=== PATIENT | female | born 1930 | race Caucasian/White ===

== ENCOUNTER 2016-09-30 13:00 | Outpatient (RCR) | payer MEDICARE, MEDICAID ==
[~2016-09-30 13:00] MED LIST: BENICAR40 MG ORAL; CARAFATE1 G1 ORAL; DIPHENHYDRAMINE30 GM TOPIC; HYDROCODON-ACE1 EA15 ORAL; HYDROCORTISONE28 G2 TP; KEFLEX500 MG ORAL; LIPITOR80 MG ORAL; MELOXICAM7.5 MG PO; METFORMIN HCL500 M1 ORAL; PANTOPRAZOLE SO40 MG ORAL; TRAMADOL HCL50 MG ORAL
== END 2016-10-04 | disposition home or self-care (01) ==
LOC: PTY 13:00
DX: M75.51 Bursitis of right shoulder (principal); M47.817 Spondylosis without myelopathy or radiculopathy, lumbosacral region
CPT/HCPCS: 97110; 97162; G8978; G8979

== ENCOUNTER 2016-10-07 13:00 | Outpatient (RCR) | payer MEDICARE, MEDICAID | END 2016-11-01 | disposition home or self-care (01) | LOC: PTY 13:00 | DX: M75.51 Bursitis of right shoulder (principal); M47.817 Spondylosis without myelopathy or radiculopathy, lumbosacral region | CPT/HCPCS: 97110; 97140; G0283 ==

== ENCOUNTER 2016-11-02 12:30 | Outpatient (RCR) | payer MEDICARE, MEDICAID ==
[2016-11-20] MEDS ORDERED: PERMETHRIN60 GM TOPIC (18:10)
== END 2016-12-02 | disposition home or self-care (01) ==
LOC: PTY 12:30
DX: M75.51 Bursitis of right shoulder (principal); M47.817 Spondylosis without myelopathy or radiculopathy, lumbosacral region; Z91.81 History of falling; M54.5 Low back pain; E11.9 Type 2 diabetes mellitus without complications; M19.90 Unspecified osteoarthritis, unspecified site
CPT/HCPCS: 97110; 97140; G8979; G8980

== ENCOUNTER 2016-11-20 17:37 | Emergency (ER) | payer MEDICARE, MEDICAID ==
[~2016-11-20] VITALS: Ht 152.4 cm; Wt 56.7 kg
[2016-11-20 18:02] VITALS: BP 171/78
[2016-11-20] MEDS ORDERED: PERMETHRIN60 GM TOPIC (18:10)
[2016-11-20 18:26] VITALS: BP 171/78
--- NOTE | 2016-11-23 14:22 | Emergency Room Report ---
History of Present Illness General Chief Complaint: Skin Rash/Abscess Source: Family Member Present Illness HPI Patient presents with family for complaints of rash to the upper chest and back area Patient herself defers most the question to her daughter Daughter denies any acute change in medications denies any fevers or chills Denies any vomiting or diarrhea The daughter herself had shingles recently Patient has also had a bugs in the past Otherwise no reports of any recent travel Allergies: Coded Allergies: No Known Allergies (Verified , N/A, 10/16/06) Patient History Past Medical History: see triage record Pertinent Family History: none Now: No Reviewed Nursing Documentation: PMH: Agreed, PSxH: Agreed Nursing Documentation-PMH Past Medical History: No History, Except For Hx Cardiac Problems: Yes Hx Hypertension: Yes Hx Diabetes: Yes Hx Cancer: No Hx Gastrointestinal Problems: Yes - GERD Hx Neurological Problems: No Review of Systems All Other Systems: negative except mentioned in HPI Physical Exam Vital Signs Date Time Temp Pulse Resp B/P Pulse Ox O2 Delivery O2 Flow Rate FiO2 11/20/16 17:52 97.5 59 14 171/78 99 Room Air Sp02 EP Interpretation: reviewed, normal General Appearance: well appearing, no apparent distress Head: normocephalic, atraumatic Eyes: bilateral eye EOMI, bilateral eye PERRL ENT: hearing grossly normal, normal pharynx, TMs + canals normal, uvula midline Neck: full range of motion, supple, no meningismus, no bony tend Respiratory: lungs clear, normal breath sounds, no rhonchi, no respiratory distress, no retraction, no accessory muscle use Cardiovascular #1: normal peripheral pulses, regular rate, rhythm, no edema, no gallop, no JVD, no murmur Gastrointestinal: normal bowel sounds, non tender, soft, no mass, no organomegaly, non-distended, no guarding, no hernia, no pulsatile mass, no rebound Genitourinary: no CVA tenderness Musculoskeletal: normal inspection Neurologic: oriented x3, responsive, reagent tender helper III-XII nml as tested, motor strength/ tone normal, sensory intact Psychiatric: mood/affect normal Skin: other - Several areas of scab formation, midsternal chest area appears to be affected there is also area on the upper back trapezius region, there is no obvious dermatomal pattern, there is no blistering formation, there is no fluctuance Lymphatic: normal inspection, no adenopathy Medical Decision Making Diagnostic Impression: Primary Impression: Rash and other nonspecific skin eruption ER Course Multiple differentials are considered including but not limited to Shingles, medication reaction, heat rash, insect bites Patient shows fairly nonspecific findings There are several areas that have a scab formation with a linear formation Is consider infectious pathology Patient was provided with initial medication and will have close outpatient followup Last Vital Signs Date Time Temp Pulse Resp B/P Pulse Ox O2 Delivery O2 Flow Rate FiO2 11/20/16 18:26 97.5 14 171/78 99 Room Air 11/20/16 17:52 59 Status: unchanged Disposition: HOME, SELF-CARE Condition: Stable Scripts Permethrin* (ELIMITE*) 60 Gm Cream..g. 1 APPLIC TOPIC ONCE, #60 GM 0 Refills Apply cream from head to toe; leave on for 8-14 hours before washing off with water; may reapply in 1 week if live mites appear. Prov: SHAISTA WINTERS D.O. 11/20/16 Referrals: NOT CHOSEN IPA/MD,REFERRING (PCP) Patient Instructions: Rash Additional Instructions: Patient is provided with the discharge instructions notified to follow up with primary doctor in the next 2-3 days otherwise return to the er with any worsening symptoms. Please note that this report is being documented using Fieldbook technology. This can lead to erroneous entry secondary to incorrect interpretation by the dictating instrument. SHAISTA WINTERS D.O. Nov 23, 2016 14:22
== END 2016-11-20 18:26 | disposition home or self-care (01) ==
LOC: EMR 18:23
DX: R21 Rash and other nonspecific skin eruption (principal); I10 Essential (primary) hypertension; E11.9 Type 2 diabetes mellitus without complications; K21.9 Gastro-esophageal reflux disease without esophagitis
CPT/HCPCS: 99283

== ENCOUNTER 2017-05-16 01:31 | Emergency (ER) | payer MEDICARE, MEDICAID ==
[~2017-05-16] VITALS: Ht 162.6 cm; Wt 56.7 kg
[~2017-05-16 01:31] MED LIST changes: +PERMETHRIN60 GM TOPIC
[2017-05-16 01:40] VITALS: BP 161/69
[2017-05-16] MEDS ORDERED: Norco 5mg/325mg tab ORAL ONE (01:45)
[2017-05-16] MEDS ORDERED: GABAPENTIN300 MG ORAL (03:37)
--- NOTE | 2017-05-16 03:37 | Emergency Room Report ---
History of Present Illness General Chief Complaint: Lower Extremity Injury Source: Patient, Medical Record Present Illness HPI Is an 87-year-old female with multiple medical problem. She called him a prescription for bilateral load from the pain. This is a chronic problem for her. EMS said that she fell but patient denies any trauma. Said her medicine is not helping no fever chills been no nausea vomiting. Denies any other complaint. Allergies: Coded Allergies: No Known Allergies (Verified , N/A, 10/16/06) Patient History Past Medical History: see triage record, old chart reviewed Past Surgical History: other Pertinent Family History: none Social History: Denies: smoking Last Menstrual Period: NA Now: No Immunizations: other Reviewed Nursing Documentation: PMH: Agreed, PSxH: Agreed Nursing Documentation-PMH Hx Cardiac Problems: Yes Hx Hypertension: Yes Hx Diabetes: Yes Hx Cancer: No Hx Gastrointestinal Problems: Yes - GERD Hx Neurological Problems: No Review of Systems Eye: Denies: eye pain, blurred vision ENT: Denies: ear pain, nose congestion, throat swelling Respiratory: Denies: cough, shortness of breath Cardiovascular: Denies: chest pain, palpitations Gastrointestinal: Denies: abdominal pain, diarrhea, nausea, vomiting Musculoskeletal: Denies: back pain, joint pain Skin: Denies: rash Neurological: Denies: headache, numbness Endocrine: Denies: increased thirst, increased urine Hematologic/Lymphatic: Denies: easy bruising All Other Systems: negative except mentioned in HPI Physical Exam Vital Signs Date Time Temp Pulse Resp B/P (MAP) Pulse Ox O2 Delivery O2 Flow Rate FiO2 05/16/17 01:28 97.9 54 18 148/65 98 Room Air vitals normal Sp02 EP Interpretation: reviewed, normal General Appearance: well appearing, no apparent distress, alert Head: normocephalic, atraumatic Eyes: bilateral eye PERRL, bilateral eye EOMI ENT: hearing grossly normal, normal pharynx Neck: full range of motion, supple, no meningismus Respiratory: chest non-tender, lungs clear, normal breath sounds Cardiovascular #1: regular rate, rhythm, no murmur Gastrointestinal: normal bowel sounds, non tender, no mass, no organomegaly, no bruit, non-distended Musculoskeletal: back normal, gait/station normal, normal range of motion, other - Both lower legs are wrapped. There is no deformity. There is some mild erythema laterally but no evidence of infection. No warmth. No edema. Pulses are normal. Neurologic: alert, oriented x3 Psychiatric: mood/affect normal Skin: warm/dry Medical Decision Making Diagnostic Impression: Primary Impression: Neuropathic pain, leg, bilateral ER Course She with bilateral lower extremity pain. She is more comfortable after treatment. No evidence of DVT, PE, CHF to name a few. No trauma. We'll discharge home. Last Vital Signs Date Time Temp Pulse Resp B/P (MAP) Pulse Ox O2 Delivery O2 Flow Rate FiO2 05/16/17 03:04 98.1 05/16/17 01:40 53 13 161/69 99 Room Air Status: improved Disposition: HOME, SELF-CARE Condition: Stable Scripts Gabapentin* (GABAPENTIN*) 300 Mg Capsule 300 MG ORAL BEDTIME, #20 CAP Prov: ALEJANDRO FLOOD M.D. 05/16/17 Referrals: NOT CHOSEN IPA/,REFERRING (PCP) Additional Instructions: Followup with your Dr. in 7 days. Return if symptom worsen. ALEJANDRO FLOOD M.D. May 16, 2017 03:37
[2017-05-16 03:50] VITALS: BP 167/65
[2017-05-16 05:42] VITALS: BP 159/60
[2017-05-16 07:00] VITALS: BP 143/61
[2017-05-16 08:30] VITALS: BP 163/57
[2017-05-16 09:40] VITALS: BP 143/61
== END 2017-05-16 09:40 | disposition home or self-care (01) ==
LOC: EDBD 01:31 → EMR 01:47
DX: M79.2 Neuralgia and neuritis, unspecified (principal); M79.605 Pain in left leg; M79.604 Pain in right leg; I10 Essential (primary) hypertension; E11.9 Type 2 diabetes mellitus without complications; K21.9 Gastro-esophageal reflux disease without esophagitis
CPT/HCPCS: 82962; 99283

== ENCOUNTER 2017-09-06 13:41 | Inpatient (IN) | payer MEDICARE, MEDICAID ==
[~2017-09-06] VITALS: Ht 162.6 cm; Wt 54.0 kg
[~2017-09-06 13:41] MED LIST changes: +GABAPENTIN300 MG ORAL
[2017-09-06] MEDS ORDERED: Solu-MEDROL 125mg Inj IVP ONE (14:15)
--- NOTE | 2017-09-06 14:17 | Emergency Room Report ---
History of Present Illness General Chief Complaint: Dyspnea/Respdistress Source: Patient, Family Member Present Illness HPI 87-year-old female with history of asthma, diabetes and hypertension p/w SOB for 3 days. Patient states SOB began gradually. Daughter states that she has heavy breathing and wheezing. SOB occurs both at rest and on exertion. + non productive cough. Denies chest pain. Daughter states that she has an albuterol inhaler, however asthma has not acted up in a long time, has not been using at home. Patient does not have nebulizer at home. No recent steroid use. Last hospitalization was more than 6 months ago Patient also has intermittent swelling of her legs, swelling of her legs slightly worse than normal, no history of heart failure Denies fever, chills. Denies sick contacts or recent travel. Allergies: Coded Allergies: No Known Allergies (Verified , N/A, 10/16/06) Patient History Past Medical History: see triage record Past Surgical History: none Pertinent Family History: none Reviewed Nursing Documentation: PMH: Agreed, PSxH: Agreed Nursing Documentation-PMH Past Medical History: No History, Except For Hx Cardiac Problems: Yes - Cardiomegaly Hx Hypertension: Yes Hx Diabetes: Yes Hx Cancer: No Hx Gastrointestinal Problems: Yes - GERD Hx Neurological Problems: No Review of Systems All Other Systems: negative except mentioned in HPI Physical Exam Vital Signs Date Time Temp Pulse Resp B/P (MAP) Pulse Ox O2 Delivery O2 Flow Rate FiO2 09/06/17 13:42 98.1 54 16 152/77 95 Room Air Sp02 EP Interpretation: reviewed, normal General Appearance: alert, GCS 15, non-toxic, moderate distress, thin Head: normocephalic, atraumatic Eyes: bilateral eye normal inspection, bilateral eye PERRL, bilateral eye EOMI ENT: normal ENT inspection, normal pharynx, normal voice, moist mucus membranes Neck: normal inspection, full range of motion, supple Respiratory: respiratory distress, wheezing, expiration Cardiovascular #1: regular rate, rhythm, normal capillary refill, edema Cardiovascular #2: 2+ radial (R), 2+ radial (L) Gastrointestinal: normal inspection, non tender, soft, non-distended, no guarding Musculoskeletal: normal inspection, back normal, normal range of motion, non- tender Neurologic: normal inspection, alert, oriented x3, responsive, motor strength/ tone normal, sensory intact, normal gait, speech normal Psychiatric: normal inspection, judgement/insight normal, memory normal Skin: normal inspection, normal color, no rash, warm/dry, well hydrated, normal turgor Procedures Critical Care Time Critical Care Time 40 minutes of CC time 87-year-old female, shortness of breath, asthma exacerbation VS: Tachypnea, tachycardic, hypoxic PLAN: IV access, labs, troponin, and meds, steroids, chest x-ray Anticipate admission to Tele vs. MIKE CC time also includes review of labs, review of EMR, discussion with family and paperwork from SNF, d/w hospitalist CC could include dosing of pressors, additional Abx CC time does not include procedures Medical Decision Making Diagnostic Impression: Primary Impression: Respiratory distress Additional Impressions: Asthma exacerbation Pneumonia UTI (urinary tract infection) ER Course 87-year-old female with history of asthma p/w SOB DDX: Asthma exacerbation, CHF, pneumonia, upper respiratory infection/viral syndrome PE is unlikely given other likely diagnoses which is more likely in this patients given clinical scenario and physical examination. urthermore, there is no history of DVT/PE. PERC negative. No risk factors such as prolonged immobilizations, recent surgeries, hypercoagulability. Plan: Combivent nebulizer treatment x 3, steroids, EKG, CXR If patient's condition minimally improves/worsens will require IV access and blood work. Possible IV medications such as magnesium sulfate, continuous albuterol, BIPAP. ER Course: Patient's respiratory status has been closely monitored in the ED. Patient has been treated with combivent x 3, steroids. Repeat lung auscultation reveals persistent wheezing. more nebs given, and has improvement, speaking in complete sentences R sided infiltrate - abx given also with UTI Disposition: Patient will be admitted to telemetry D/W hospitalist Dr Velez Please note that this Emergency Department Report was dictated using [employer] manager technology software, occasionally this can lead to erroneous entry secondary to interpretation by the dictation equipment. EKG Diagnostic Results EP Interpretation: Yes Rate: normal Rhythm: NSR ST Segments: LBBB no sgarbossa criteria fulfilled ASA given to patient: No Rhythm Strip EP Interpretation: Yes Rate: 70 Rhythm: NSR, no PVCs, no ectopy Chest X-ray * CXR: Ordered: Yes 1 view Indication: SOB EP interpretation: Yes Interpretation: suspicious R sided developing pneumonia Impression: R sided infiltrate Electronically signed by Angie Bennett MD Last Vital Signs Date Time Temp Pulse Resp B/P (MAP) Pulse Ox O2 Delivery O2 Flow Rate FiO2 09/06/17 13:42 98.1 54 16 152/77 95 Room Air Disposition: ADMITTED INPATIENT Condition: Critical Angie Bennett M.D. Sep 06, 2017 14:17
[2017-09-06] MEDS: Albuterol ud Inhalation HHN SCH ×4 (14:33→16:22)
[2017-09-06] MEDS: Ipratropium 0.02% Inh Soln 2.5ml UD HHN SCH ×3 (14:33→14:35)
[2017-09-06] MEDS ORDERED: Azithromycin 500 MG in D5W 275 ML IVPB ONE (15:15)
[2017-09-06] MEDS ORDERED: cefTRIAXone 1 GM in NS 55 ML IVPB ONE (15:15)
[2017-09-06] MEDS ORDERED: Azithromycin 500mg Inj IV ONE (15:19)
--- NOTE | 2017-09-06 15:39 | Diagnostic Imaging Report ---
Indication: Shortness of breath Technique: One view of the chest Comparison: 02/18/2011 Findings: Patient is slightly rotated to the left. The heart is enlarged. There is a small retrocardiac hiatal hernia. No definite acute infiltrates, effusions, or congestion Impression: Borderline cardiomegaly No definite acute process
[2017-09-06 15:45] LABS: BASOPHILS % (AUTO) 1.6 % (0.0-2.0); EOSINOPHILS % (AUTO) 2.7 % (0.0-3.0); HEMATOCRIT 39.6 % (37.0-47.0); HEMOGLOBIN 12.3 G/DL (12.0-16.0); LYMPHOCYTES % (AUTO) 18.7 % (20.0-45.0); MEAN CORPUSCULAR VOLUME 93 FL (80-99); MONOCYTES % (AUTO) 13.4 % (1.0-10.0); NEUTROPHILS % (AUTO) 63.7 % (45.0-75.0); PLATELET COUNT 204 K/UL (150-450); RED BLOOD COUNT 4.27 M/UL (4.20-5.40); RED CELL DISTRIBUTION WIDTH 11.7 % (11.6-14.8); WHITE BLOOD COUNT 6.8 K/UL (4.8-10.8)
[2017-09-06] MEDS ORDERED: LEVOTHYROXINE25 MCG ORAL (15:49)
[2017-09-06] MEDS ORDERED: LASIX40 MG ORAL (15:49)
[2017-09-06] MEDS ORDERED: BYSTOLIC10 MG ORAL (15:49)
[2017-09-06] MEDS ORDERED: PANTOPRAZOLE SO40 MG ORAL (15:49)
[2017-09-06] MEDS ORDERED: MELOXICAM7.5 MG PO (15:49)
[2017-09-06] MEDS ORDERED: EZETIMIBE10 MG PO (15:49)
[2017-09-06] MEDS ORDERED: ATORVASTATIN CA40 MG ORAL (15:49)
[2017-09-06 15:54] LABS: APPEARANCE,URINE CLEAR; BILIRUBIN, URINE NEGATIVE (NEGATIVE); COLOR,URINE PALE YELLOW; GLUCOSE, URINE (UA) NEGATIVE (NEGATIVE); KETONES,URINE NEGATIVE (NEGATIVE); LEUKOCYTE ESTERASE ,URINE 3+ (NEGATIVE); NITRITE,URINE NEGATIVE (NEGATIVE); PH,URINE 7 (4.5-8.0); PROTEIN,URINE NEGATIVE (NEGATIVE); UROBILINOGEN,URINE NORMAL MG/DL (0.0-1.0)
[2017-09-06 16:15] VITALS: BP 138/73
[2017-09-06 16:18] LABS: ANION GAP 7 mmol/L (5-15); BLOOD UREA NITROGEN 15 mg/dL (7-18); CALCIUM 7.9 MG/DL (8.5-10.1); CARBON DIOXIDE 32 MMOL/L (21-32); CHLORIDE 98 MMOL/L (98-107); CREATININE 0.5 MG/DL (0.55-1.30); POTASSIUM 3.6 MMOL/L (3.5-5.1); SODIUM 137 MMOL/L (136-145)
[2017-09-06 16:26] LABS: ALANINE AMINOTRANSFERASE 43 U/L (12-78); ALBUMIN 3.7 G/DL (3.4-5.0); ALBUMIN/GLOBULIN RATIO 0.9 (1.0-2.7); ALKALINE PHOSPHATASE 49 U/L (46-116); ASPARTATE AMINO TRANSFERASE 58 U/L (15-37); BILIRUBIN,TOTAL 0.4 MG/DL (0.2-1.0)
[2017-09-06 17:54] VITALS: BP 132/70
[2017-09-06 18:35] VITALS: BP 140/59
[2017-09-06 20:13] VITALS: BP 153/76
[2017-09-06] MEDS: Atorvastatin 80mg tab ORAL SCH (22:39)
[2017-09-06] MEDS: Solu-MEDROL 40mg Inj IVP SCH (22:40)
[2017-09-06] MEDS: Albuterol/Ipratropium 3ml neb HHN SCH (23:46)
[2017-09-07 00:24] VITALS: BP 144/79
[2017-09-07] MEDS: NovoLOG Insulin Flexpen SUBQ SCH ×5 (00:39→21:32)
[2017-09-07] MEDS: Albuterol/Ipratropium 3ml neb HHN SCH ×6 (03:00→23:31)
[2017-09-07 04:24] VITALS: BP 154/74
[2017-09-07] MEDS ORDERED: Levothyroxine 25mcg tab ORAL SCH (06:30)
[2017-09-07 06:48] LABS: HEMATOCRIT 33.1 % (37.0-47.0); HEMOGLOBIN 11.4 G/DL (12.0-16.0); MEAN CORPUSCULAR VOLUME 92 FL (80-99); PLATELET COUNT 209 K/UL (150-450); RED CELL DISTRIBUTION WIDTH 11.8 % (11.6-14.8); WHITE BLOOD COUNT 7.9 K/UL (4.8-10.8)
[2017-09-07 07:18] LABS: ALANINE AMINOTRANSFERASE 28 U/L (12-78); ALBUMIN/GLOBULIN RATIO 0.7 (1.0-2.7); ALKALINE PHOSPHATASE 43 U/L (46-116); ANION GAP 7 mmol/L (5-15); ASPARTATE AMINO TRANSFERASE 37 U/L (15-37); BILIRUBIN,TOTAL 0.3 MG/DL (0.2-1.0); BLOOD UREA NITROGEN 11 mg/dL (7-18); CALCIUM 7.8 MG/DL (8.5-10.1); CARBON DIOXIDE 28 MMOL/L (21-32); CHLORIDE 99 MMOL/L (98-107); CHOLESTEROL 103 MG/DL (< 200); CREATININE 0.5 MG/DL (0.55-1.30); HDL CHOLESTEROL 56 MG/DL (40-60); POTASSIUM 3.4 MMOL/L (3.5-5.1); SODIUM 134 MMOL/L (136-145); TRIGLYCERIDES 32 MG/DL (30-150)
[2017-09-07 08:00] VITALS: BP 147/90
[2017-09-07] MEDS: Solu-MEDROL 40mg Inj IVP SCH ×2 (08:22→21:30)
[2017-09-07] MEDS: Irbesartan 150mg tablet ORAL SCH (08:23)
[2017-09-07] MEDS: Azithromycin 250mg tab ORAL SCH (08:23)
[2017-09-07] MEDS ORDERED: Furosemide 40mg tab ORAL SCH (09:00)
[2017-09-07] MEDS ORDERED: metFORMIN 500mg tab ORAL SCH (09:00)
[2017-09-07 12:00] VITALS: BP 138/73
[2017-09-07] MEDS: cefTRIAXone 1 GM in D5W 55 ML IVPB SCH (14:57)
[2017-09-07 15:44] VITALS: BP 150/72
--- NOTE | 2017-09-07 16:41 | History & Physical ---
History and Physical History & Physicial dict asthma exac HTN DM hypothy GERRI COSME Sep 07, 2017 16:41
[2017-09-07] MEDS: 1/2NS w/KCl 20mEq 1000ml 1,000 ML IV SCH (18:35)
[2017-09-07 20:00] VITALS: BP 129/72
[2017-09-07] MEDS ORDERED: Zolpidem 5mg tab ORAL PRN (20:30)
[2017-09-07] MEDS: Atorvastatin 80mg tab ORAL SCH (21:30)
[2017-09-08] VITALS: BP 137/57
--- NOTE | 2017-09-08 00:15 | History and Physical Report ---
DATE OF ADMISSION: 09/06/2017 CHIEF COMPLAINT: Short of breath. HISTORY OF PRESENT ILLNESS: This is an 87-year-old woman who was admitted from home because of several days of increasing wheezing and shortness of breath. She has a history of asthma, which has been quite stable on inhaled bronchodilators. She has not had an exacerbation in many years. She has no high fever. She has no chest pain or cough and no sputum production. She has some ankle edema that is chronic and not worse than usual. PAST MEDICAL HISTORY: Include asthma, hypertension, hyperlipidemia, diabetes, chronic edema, and acid reflux, hypothyroidism, and osteoarthritis. MEDICATIONS: Include Lipitor, Zetia, Lasix, thyroxine, meloxicam, metformin, Bystolic, Benicar, and pantoprazole. REVIEW OF SYSTEMS: Otherwise unremarkable, but limited by language barrier. PHYSICAL EXAMINATION: GENERAL: The patient is alert and responsive, but is moaning that "I do not feel well." VITAL SIGNS: Blood pressure is 138 to 154/74. There is no fever. Respirations are 20. Saturation is normal on supplemental oxygen. Heart rate is 79. SKIN: Warm and dry. HEENT: She is overweight. Head is normocephalic. NECK: No jugular venous distention. CHEST: Mild expiratory wheezing. CARDIAC: Rhythm is regular. ABDOMEN: Soft and nontender. EXTREMITIES: No clubbing or cyanosis. Trace edema. LABORATORY AND DIAGNOSTIC DATA: X-ray is clear. Lungs are clear with cardiomegaly. Laboratory tests show an elevated TSH, white count and hemoglobin are normal. Blood sugar is somewhat elevated. IMPRESSION: 1. Acute exacerbation of asthma. 2. Diabetes. 3. Hypertension. 4. Hyperlipidemia. 5. Hypothyroidism. PLAN: The patient's medications will be adjusted. We will give breathing treatments, antibiotics and steroids. She will be discharged home when her condition permits. Kel Velez M.D. DR: KAVITA JOB#: [id number] CC:
[2017-09-08] MEDS: Albuterol/Ipratropium 3ml neb HHN SCH ×6 (03:00→23:51)
[2017-09-08 04:00] VITALS: BP 129/55
[2017-09-08] MEDS: NovoLOG Insulin Flexpen SUBQ SCH ×4 (06:38→21:07)
[2017-09-08] MEDS: 1/2NS w/KCl 20mEq 1000ml 1,000 ML IV SCH ×3 (07:20→18:53)
[2017-09-08 07:45] LABS: ALANINE AMINOTRANSFERASE 30 U/L (12-78); ALBUMIN 2.9 G/DL (3.4-5.0); ALBUMIN/GLOBULIN RATIO 0.8 (1.0-2.7); ALKALINE PHOSPHATASE 42 U/L (46-116); ANION GAP 5 mmol/L (5-15); ASPARTATE AMINO TRANSFERASE 30 U/L (15-37); BILIRUBIN,TOTAL 0.3 MG/DL (0.2-1.0); BLOOD UREA NITROGEN 16 mg/dL (7-18); CALCIUM 7.8 MG/DL (8.5-10.1); CARBON DIOXIDE 31 MMOL/L (21-32); CHLORIDE 100 MMOL/L (98-107); CREATININE 0.6 MG/DL (0.55-1.30); POTASSIUM 3.6 MMOL/L (3.5-5.1); SODIUM 136 MMOL/L (136-145)
[2017-09-08 07:50] VITALS: BP 159/80
[2017-09-08] MEDS: Azithromycin 250mg tab ORAL SCH (08:44)
[2017-09-08] MEDS: Irbesartan 150mg tablet ORAL SCH (08:44)
[2017-09-08] MEDS: Solu-MEDROL 40mg Inj IVP SCH ×2 (08:45→21:04)
[2017-09-08 13:00] VITALS: BP 143/75
--- NOTE | 2017-09-08 14:19 | Pulmonology Progress Note ---
Assessment/Plan Assessment/Plan IMPRESSION: 1. Acute exacerbation of asthma. 2. Diabetes. 3. Hypertension. 4. Hyperlipidemia. 5. Hypothyroidism. PLAN: continue breathing treatments, antibiotics and steroids. She will be discharged home when her condition permits. Subjective Interval Events: states that she is feeling better. Constitutional: Reports: no symptoms HEENT: Repors: no symptoms Respiratory: Reports: no symptoms Cardiovascular: Reports: no symptoms Gastrointestinal/Abdominal: Reports: no symptoms Allergies: Coded Allergies: No Known Allergies (Verified , N/A, 10/16/06) Objective Last 24 Hour Vital Signs Date Time Temp Pulse Resp B/P (MAP) Pulse Ox O2 Delivery O2 Flow Rate FiO2 09/08/17 13:00 97.6 64 18 143/75 96 Nasal Cannula 2.0 09/08/17 11:53 63 09/08/17 10:54 80 21 97 Nasal Cannula 3.0 32 09/08/17 10:44 78 20 92 Nasal Cannula 3.0 32 09/08/17 08:44 159/80 09/08/17 07:58 76 09/08/17 07:50 97.9 78 18 159/80 95 Nasal Cannula 2.0 09/08/17 06:59 71 22 98 Nasal Cannula 3.0 32 09/08/17 06:49 Nasal Cannula 3.0 32 09/08/17 06:49 98 Nasal Cannula 3.0 32 09/08/17 06:49 70 23 98 Nasal Cannula 3.0 32 09/08/17 04:08 57 09/08/17 04:00 97.0 55 18 129/55 95 09/08/17 04:00 96 Room Air 2.0 09/08/17 03:54 Nasal Cannula 09/08/17 03:53 Nasal Cannula 09/08/17 00:00 97.7 65 20 137/57 94 09/08/17 00:00 94 Room Air 09/07/17 23:45 59 20 94 Nasal Cannula 3.0 32 09/07/17 23:37 54 09/07/17 23:33 57 22 93 Nasal Cannula 3.0 32 09/07/17 20:17 69 18 93 Nasal Cannula 3.0 32 09/07/17 20:09 Nasal Cannula 3.0 32 09/07/17 20:08 94 Nasal Cannula 3.0 32 09/07/17 20:07 64 20 94 Nasal Cannula 3.0 32 09/07/17 20:00 95 Room Air 09/07/17 20:00 97.3 65 20 129/72 95 09/07/17 19:08 69 09/07/17 15:44 97.0 71 18 150/72 98 Nasal Cannula 2.0 09/07/17 15:28 69 09/07/17 15:01 72 20 97 Nasal Cannula 2.0 28 09/07/17 14:41 68 20 98 Nasal Cannula 2.0 28 Intake and Output 09/07/17 09/08/17 19:00 07:00 Intake Total 621 ml 900 ml Balance 621 ml 900 ml Intake Oral 480 ml IV Total 141 ml 900 ml # Voids 3 2 # Bowel Movements 1 1 General Appearance: no acute distress HEENT: normocephalic Respiratory/Chest: chest wall non-tender, decreased breath sounds Cardiovascular: normal peripheral pulses, normal rate, regular rhythm Microbiology Date/Time Source Procedure Growth Status 09/06/17 15:25 Blood Blood Culture - Preliminary NO GROWTH AFTER 24 HOURS Resulted 09/06/17 15:15 Blood Blood Culture - Preliminary NO GROWTH AFTER 24 HOURS Resulted 09/06/17 15:30 Nasal Nares Influenza Types A,B Antigen (ZACK) - Final Complete Laboratory Tests 09/08/17 05:40: Sodium Level 136, Potassium Level 3.6, Chloride Level 100, Carbon Dioxide Level 31, Anion Gap 5, Blood Urea Nitrogen 16, Creatinine 0.6, Estimat Glomerular Filtration Rate , Glucose Level 165H, Calcium Level 7.8L, Total Bilirubin 0.3, Aspartate Amino Transf (AST/SGOT) 30, Alanine Aminotransferase (ALT/SGPT) 30, Alkaline Phosphatase 42L, Total Protein 6.7, Albumin 2.9L, Globulin 3.8, Albumin /Globulin Ratio 0.8L Current Medications Medications (Trade) Dose Ordered Sig/Cornel Route PRN Reason Start Time Stop Time Status Last Admin Dose Admin Albuterol/ Ipratropium (Albuterol/ Ipratropium) 3 ml Q4HRT HHN 09/06/17 23:00 09/11/17 22:59 09/08/17 10:44 Atorvastatin Calcium (Lipitor) 80 mg BEDTIME ORAL 09/06/17 21:00 10/06/17 20:59 09/07/17 21:30 Azithromycin (Zithromax) 250 mg DAILY ORAL 09/07/17 09:00 09/14/17 08:59 09/08/17 08:44 Ceftriaxone Sodium 1 gm/ Dextrose 55 ml @ 110 mls/hr Q24H IVPB 09/07/17 15:00 09/14/17 14:59 09/07/17 14:57 Dextrose (Dextrose 50%) STAT PRN IV Hypoglycemia 09/06/17 20:15 10/06/17 20:14 EZETIMIBE (Zetia) 10 mg DAILY ORAL 09/07/17 09:00 10/07/17 08:59 09/08/17 08:44 Insulin Aspart (NovoLOG) BEFORE MEALS AND HS SUBQ 09/07/17 16:30 10/07/17 16:29 09/08/17 11:14 Irbesartan (Avapro) 300 mg DAILY ORAL 09/07/17 09:00 10/07/17 08:59 09/08/17 08:44 Levothyroxine Sodium (Synthroid) 50 mcg ACBREAKFAST ORAL 09/08/17 06:30 10/08/17 06:29 09/08/17 06:38 Meloxicam (Mobic) 7.5 mg DAILY ORAL 09/07/17 09:00 10/07/17 08:59 09/08/17 08:44 Methylprednisolone Sodium Succinate (Solu-MEDROL) 40 mg EVERY 12 HOURS IVP 09/06/17 21:00 10/06/17 20:59 09/08/17 08:45 Nebivolol (Bystolic) 20 mg DAILY ORAL 09/07/17 09:00 10/07/17 08:59 09/08/17 08:44 Pantoprazole (Protonix) 40 mg DAILY ORAL 09/07/17 09:00 10/07/17 08:59 09/08/17 08:44 Sodium 1,000 ml @ 75 mls/hr [id number] IV 09/07/17 18:00 10/07/17 17:59 09/08/17 09:22 Zolpidem Tartrate (Ambien) 5 mg HSPRN PRN ORAL Insomnia 09/07/17 20:30 09/14/17 20:29 Mauricio Jerez MD Sep 08, 2017 14:18
[2017-09-08] MEDS: cefTRIAXone 1 GM in D5W 55 ML IVPB SCH (15:19)
[2017-09-08 16:50] VITALS: BP 157/77
[2017-09-08] MEDS ORDERED: Zolpidem 5mg tab ORAL PRN (19:00)
[2017-09-08 20:19] VITALS: BP 151/66
[2017-09-08] MEDS: Atorvastatin 80mg tab ORAL SCH (21:04)
[2017-09-09] VITALS (7 sets, daily range): BP systolic 126–175; BP diastolic 61–90
[2017-09-09] MEDS: Albuterol/Ipratropium 3ml neb HHN SCH ×6 (03:48→22:56)
[2017-09-09] MEDS: NovoLOG Insulin Flexpen SUBQ SCH ×4 (06:00→21:16)
[2017-09-09] MEDS: 1/2NS w/KCl 20mEq 1000ml 1,000 ML IV SCH ×2 (08:20→12:00)
[2017-09-09] MEDS: Solu-MEDROL 40mg Inj IVP SCH ×2 (09:34→21:14)
[2017-09-09] MEDS: Azithromycin 250mg tab ORAL SCH (09:35)
[2017-09-09] MEDS: Irbesartan 150mg tablet ORAL SCH (09:36)
[2017-09-09] MEDS: cefTRIAXone 1 GM in D5W 55 ML IVPB SCH (14:55)
[2017-09-09] MEDS: HydrALAZINE 25mg tab ORAL PRN (16:09)
--- NOTE | 2017-09-09 18:17 | Pulmonology Progress Note ---
Assessment/Plan Assessment/Plan 1. Acute exacerbation of asthma. 2. Diabetes. 3. Hypertension. 4. Hyperlipidemia. 5. Hypothyroidism. PLAN: continue breathing treatments, antibiotics and steroids, transition to po in am if stable on RA hep lock ivf check labs She will be discharged home when her condition permits. Subjective ROS Limited/Unobtainable: Yes Allergies: Coded Allergies: No Known Allergies (Verified , N/A, 10/16/06) Subjective confused agitated at times on RA no distress tolerating some po no fever cough Objective Last 24 Hour Vital Signs Date Time Temp Pulse Resp B/P (MAP) Pulse Ox O2 Delivery O2 Flow Rate FiO2 09/09/17 17:31 72 147/76 09/09/17 16:09 175/87 09/09/17 15:57 98.3 77 22 175/87 96 Room Air 09/09/17 15:00 79 18 98 Room Air 21 09/09/17 14:50 78 18 96 Room Air 21 09/09/17 11:49 98.0 89 21 145/90 99 Room Air 09/09/17 10:50 75 20 98 Room Air 21 09/09/17 10:35 70 20 96 Room Air 21 09/09/17 09:36 156/78 09/09/17 08:00 98.2 60 19 156/78 95 Room Air 09/09/17 07:51 78 20 98 Room Air 09/09/17 07:40 67 18 Room Air 21 09/09/17 07:40 67 18 95 Room Air 21 09/09/17 07:40 95 Room Air 21 09/09/17 07:40 Room Air 21 09/09/17 04:40 97.6 60 18 162/75 94 Room Air 09/09/17 03:56 72 20 98 Room Air 09/09/17 03:48 65 20 99 Room Air 21 09/09/17 00:50 85 21 Room Air 21 09/09/17 00:00 97.5 60 18 151/61 96 Room Air 09/08/17 23:57 69 20 99 Room Air 09/08/17 23:51 61 20 98 Room Air 21 09/08/17 20:32 66 20 99 Room Air 09/08/17 20:21 95 Room Air 21 09/08/17 20:20 Room Air 09/08/17 20:20 66 20 95 Room Air 21 09/08/17 20:19 97.5 61 18 151/66 94 Room Air Intake and Output 09/08/17 09/09/17 19:00 07:00 Intake Total 815 ml 900 ml Balance 815 ml 900 ml Intake Oral 440 ml IV Total 375 ml 900 ml # Voids 4 3 # Bowel Movements 2 General Appearance: WD/WN HEENT: atraumatic, mucous membranes moist Respiratory/Chest: rhonchi Cardiovascular: normal rate, regular rhythm Abdomen: soft, non tender, no organomegaly Extremities: no cyanosis, no edema Skin: no rash Neurologic/Psychiatric: alert, disoriented Lymphatic: no neck adenopathy Musculoskeletal: normal muscle bulk Current Medications Medications (Trade) Dose Ordered Sig/Cornel Route PRN Reason Start Time Stop Time Status Last Admin Dose Admin Albuterol/ Ipratropium (Albuterol/ Ipratropium) 3 ml Q4HRT HHN 09/08/17 19:00 09/11/17 22:59 09/09/17 14:50 Atorvastatin Calcium (Lipitor) 80 mg BEDTIME ORAL 09/08/17 21:00 10/06/17 20:59 09/08/17 21:04 Azithromycin (Zithromax) 250 mg DAILY ORAL 09/09/17 09:00 09/14/17 08:59 09/09/17 09:35 Ceftriaxone Sodium 1 gm/ Dextrose 55 ml @ 110 mls/hr Q24H IVPB 09/09/17 15:00 09/14/17 14:59 09/09/17 14:55 Dextrose (Dextrose 50%) STAT PRN IV Hypoglycemia 09/08/17 19:00 10/06/17 18:59 EZETIMIBE (Zetia) 10 mg DAILY ORAL 09/09/17 09:00 10/07/17 08:59 09/09/17 09:34 Hydralazine HCl (Apresoline) 25 mg Q6H PRN ORAL For High Blood Pressure 09/09/17 15:45 10/09/17 15:44 09/09/17 16:09 Insulin Aspart (NovoLOG) BEFORE MEALS AND HS SUBQ 09/08/17 21:00 10/07/17 16:29 09/09/17 16:10 Irbesartan (Avapro) 300 mg DAILY ORAL 09/09/17 09:00 2/3/18 08:59 09/09/17 09:36 Levothyroxine Sodium (Synthroid) 50 mcg ACBREAKFAST ORAL 09/09/17 06:30 10/08/17 06:29 09/09/17 05:59 Meloxicam (Mobic) 7.5 mg DAILY ORAL 09/09/17 09:00 10/07/17 08:59 09/09/17 09:34 Methylprednisolone Sodium Succinate (Solu-MEDROL) 40 mg EVERY 12 HOURS IVP 09/08/17 21:00 10/06/17 20:59 09/09/17 09:34 Nebivolol (Bystolic) 20 mg DAILY ORAL 09/09/17 09:00 10/07/17 08:59 09/09/17 09:35 Pantoprazole (Protonix) 40 mg DAILY ORAL 09/09/17 09:00 10/07/17 08:59 09/09/17 09:38 Quetiapine Fumarate (SEROquel) 25 mg Q6H PRN ORAL Agitation 09/09/17 15:45 10/09/17 15:44 09/09/17 16:09 Sodium 1,000 ml @ 75 mls/hr [id number] IV 09/08/17 19:00 10/07/17 18:59 09/09/17 12:00 Zolpidem Tartrate (Ambien) 5 mg HSPRN PRN ORAL Insomnia 09/08/17 19:00 09/14/17 18:59 RANJAN KUMARI DO Sep 09, 2017 18:17
[2017-09-09] MEDS: Atorvastatin 80mg tab ORAL SCH (21:14)
[2017-09-09] MEDS ORDERED: Tubing IV Secondary IV ONE (22:39)
[2017-09-10] VITALS (7 sets, daily range): BP systolic 152–192; BP diastolic 71–87
[2017-09-10] MEDS: Albuterol/Ipratropium 3ml neb HHN SCH ×5 (02:14→18:23)
[2017-09-10] MEDS: HydrALAZINE 25mg tab ORAL PRN ×2 (04:28→14:39)
[2017-09-10] MEDS: NovoLOG Insulin Flexpen SUBQ SCH ×4 (05:56→21:38)
[2017-09-10 07:18] LABS: HEMATOCRIT 37.9 % (37.0-47.0); HEMOGLOBIN 12.5 G/DL (12.0-16.0); MEAN CORPUSCULAR VOLUME 92 FL (80-99); PLATELET COUNT 275 K/UL (150-450); RED BLOOD COUNT 4.13 M/UL (4.20-5.40); RED CELL DISTRIBUTION WIDTH 11.9 % (11.6-14.8); WHITE BLOOD COUNT 9.7 K/UL (4.8-10.8)
[2017-09-10 07:34] LABS: ANION GAP 7 mmol/L (5-15); BLOOD UREA NITROGEN 14 mg/dL (7-18); CALCIUM 7.8 MG/DL (8.5-10.1); CARBON DIOXIDE 28 MMOL/L (21-32); CHLORIDE 101 MMOL/L (98-107); CREATININE 0.6 MG/DL (0.55-1.30); POTASSIUM 4.1 MMOL/L (3.5-5.1); SODIUM 136 MMOL/L (136-145)
[2017-09-10] MEDS: Irbesartan 150mg tablet ORAL SCH (08:20)
[2017-09-10] MEDS: Solu-MEDROL 40mg Inj IVP SCH (08:24)
[2017-09-10] MEDS: Azithromycin 250mg tab ORAL SCH (08:26)
--- NOTE | 2017-09-10 13:46 | Consultation ---
History of Present Illness General Date patient seen: Sep 09, 2017 Chief Complaint: Dyspnea/Respdistress Present Illness HPI 87-year-old woman with history of cognitive impairment, mmp, asthma, which has been quite stable on inhaled bronchodilators. the pt pw anxiety and agitation. During the evaluation, the pt was only oriented to place and self. She appeared anxious and was constantly calling her nurse. the pt did not have pain and had cognitive impairment. Allergies: Coded Allergies: No Known Allergies (Verified , N/A, 10/16/06) Medication History Scheduled Atorvastatin Calcium* (Atorvastatin Calcium*), 80 MG ORAL BEDTIME, (Reported) Furosemide* (Lasix*), 40 MG ORAL DAILY, (Reported) Levothyroxine Sodium* (Levothyroxine Sodium*), 25 MCG ORAL DAILY, (Reported) Meloxicam* (Meloxicam*), 7.5 MG PO DAILY, (Reported) Metformin Hcl* (Metformin Hcl*), 500 MG ORAL TWICE A DAY, (Reported) Nebivolol Hcl (Bystolic*), 20 MG ORAL DAILY, (Reported) Olmesartan Medoxomil (Benicar), 40 MG ORAL DAILY, (Reported) Pantoprazole* (Pantoprazole*), 40 MG ORAL DAILY, (Reported) Miscellaneous Medications Ezetimibe (Ezetimibe), 10 MG PO, (Reported) Discontinued Medications Gabapentin* (Gabapentin*), 300 MG ORAL BEDTIME Discontinued Reason: Pt stopped taking med Hydrocortisone Acetate 1% Onit (Hydrocortisone 1% Oint), 28 GM TP DAILY Discontinued Reason: Pt stopped taking med Permethrin* (Elimite*), 1 APPLIC TOPIC ONCE Discontinued Reason: Pt stopped taking med Patient History Limited by: medical condition History Provided By: Patient, Medical Record, PMD Healthcare decision maker Resuscitation status Full Code Advanced Directive on File Past Medical/Surgical History Past Medical/Surgical History: (1) Gastroenteritis (2) ACS (acute coronary syndrome) (3) Bed bug bite (4) Abrasion (5) Back pain (6) Contact dermatitis (7) Rash and other nonspecific skin eruption (8) UTI (urinary tract infection) (9) Pneumonia (10) Respiratory distress (11) Asthma exacerbation Review of Systems Psychiatric: Reports: see HPI, prior hx, anxiety, depressed feelings Physical Exam General Appearance: no apparent distress, alert, confused Neurologic: alert, responsive, disoriented, depressed affect Last 24 Hour Vital Signs Date Time Temp Pulse Resp B/P (MAP) Pulse Ox O2 Delivery O2 Flow Rate FiO2 09/10/17 12:00 98.6 60 19 169/72 94 09/10/17 11:32 78 18 99 Room Air 21 09/10/17 11:22 60 18 94 Room Air 21 09/10/17 08:20 157/72 09/10/17 08:05 64 18 98 Room Air 21 09/10/17 08:05 Room Air 21 09/10/17 08:04 95 Room Air 21 09/10/17 08:04 72 18 Room Air 21 09/10/17 08:00 97.2 64 19 157/72 99 09/10/17 07:35 79 18 99 Room Air 21 09/10/17 07:25 78 18 98 Room Air 21 09/10/17 05:15 57 160/71 09/10/17 04:28 192/82 09/10/17 04:00 96.8 56 21 192/82 98 09/10/17 02:15 Room Air 21 09/10/17 02:14 Room Air 21 09/10/17 00:00 98.1 68 19 152/83 95 09/09/17 22:53 Room Air 21 09/09/17 22:52 Room Air 21 09/09/17 20:08 78 18 99 Room Air 21 09/09/17 20:07 Room Air 21 09/09/17 20:07 96 Room Air 21 09/09/17 20:06 75 18 Room Air 21 09/09/17 20:00 98.1 62 20 126/73 96 09/09/17 19:57 82 18 97 Room Air 21 09/09/17 17:31 72 147/76 09/09/17 16:09 175/87 09/09/17 15:57 98.3 77 22 175/87 96 Room Air 09/09/17 15:00 79 18 98 Room Air 21 09/09/17 14:50 78 18 96 Room Air 21 Intake and Output 09/09/17 09/10/17 19:00 07:00 Intake Total 745 ml 620 ml Output Total 225 ml Balance 745 ml 395 ml Intake Oral 240 ml 620 ml IV Total 505 ml Output Urine Total 225 ml # Voids 4 5 Laboratory Tests Test 1/7/18 05:15 White Blood Count 9.7 K/UL (4.8-10.8) Red Blood Count 4.13 M/UL (4.20-5.40) L Hemoglobin 12.5 G/DL (12.0-16.0) Hematocrit 37.9 % (37.0-47.0) Mean Corpuscular Volume 92 FL (80-99) Mean Corpuscular Hemoglobin 30.2 PG (27.0-31.0) Mean Corpuscular Hemoglobin Concent 32.9 G/DL (32.0-36.0) Red Cell Distribution Width 11.9 % (11.6-14.8) Platelet Count 275 K/UL (150-450) Mean Platelet Volume 6.7 FL (6.5-10.1) Neutrophils (%) (Auto) % (45.0-75.0) Lymphocytes (%) (Auto) % (20.0-45.0) Monocytes (%) (Auto) % (1.0-10.0) Eosinophils (%) (Auto) % (0.0-3.0) Basophils (%) (Auto) % (0.0-2.0) Differential Total Cells Counted 100 Neutrophils % (Manual) 91 % (45-75) H Lymphocytes % (Manual) 8 % (20-45) L Monocytes % (Manual) 1 % (1-10) Eosinophils % (Manual) 0 % (0-3) Basophils % (Manual) 0 % (0-2) Band Neutrophils 0 % (0-8) Platelet Estimate Adequate Platelet Morphology Normal Red Blood Cell Morphology Normal Sodium Level 136 MMOL/L (136-145) Potassium Level 4.1 MMOL/L (3.5-5.1) Chloride Level 101 MMOL/L (98-107) Carbon Dioxide Level 28 MMOL/L (21-32) Anion Gap 7 mmol/L (5-15) Blood Urea Nitrogen 14 mg/dL (7-18) Creatinine 0.6 MG/DL (0.55-1.30) Estimat Glomerular Filtration Rate mL/min (>60) Glucose Level 165 MG/DL (74-106) H Calcium Level 7.8 MG/DL (8.5-10.1) L Magnesium Level 2.1 MG/DL (1.8-2.4) Height (Feet): 5 Height (Inches): 4.00 Weight (Pounds): 115 Medications Current Medications Medications (Trade) Dose Ordered Sig/Cornel Route PRN Reason Start Time Stop Time Status Last Admin Dose Admin Albuterol/ Ipratropium (Albuterol/ Ipratropium) 3 ml Q4HRT HHN 09/08/17 19:00 09/11/17 22:59 09/10/17 11:21 Atorvastatin Calcium (Lipitor) 80 mg BEDTIME ORAL 09/08/17 21:00 10/06/17 20:59 09/09/17 21:14 Azithromycin (Zithromax) 250 mg DAILY ORAL 09/09/17 09:00 09/14/17 08:59 09/10/17 08:26 Ceftriaxone Sodium 1 gm/ Dextrose 55 ml @ 110 mls/hr Q24H IVPB 09/09/17 15:00 09/14/17 14:59 09/09/17 14:55 Dextrose (Dextrose 50%) STAT PRN IV Hypoglycemia 09/08/17 19:00 10/06/17 18:59 EZETIMIBE (Zetia) 10 mg DAILY ORAL 09/09/17 09:00 10/07/17 08:59 09/10/17 08:23 Hydralazine HCl (Apresoline) 25 mg Q6H PRN ORAL For High Blood Pressure 09/09/17 15:45 10/09/17 15:44 09/10/17 04:28 Insulin Aspart (NovoLOG) BEFORE MEALS AND HS SUBQ 09/08/17 21:00 10/07/17 16:29 09/10/17 11:25 Irbesartan (Avapro) 300 mg DAILY ORAL 09/09/17 09:00 10/07/17 08:59 09/10/17 08:20 Levothyroxine Sodium (Synthroid) 50 mcg ACBREAKFAST ORAL 09/09/17 06:30 10/08/17 06:29 09/10/17 05:53 Meloxicam (Mobic) 7.5 mg DAILY ORAL 09/09/17 09:00 10/07/17 08:59 09/10/17 08:23 Methylprednisolone Sodium Succinate (Solu-MEDROL) 40 mg EVERY 12 HOURS IVP 09/08/17 21:00 10/06/17 20:59 09/10/17 08:24 Nebivolol (Bystolic) 20 mg DAILY ORAL 09/09/17 09:00 10/07/17 08:59 09/10/17 08:20 Pantoprazole (Protonix) 40 mg DAILY ORAL 09/09/17 09:00 10/07/17 08:59 09/10/17 08:23 Quetiapine Fumarate (SEROquel) 25 mg Q6H PRN ORAL Agitation 09/09/17 15:45 10/09/17 15:44 09/09/17 16:09 Zolpidem Tartrate (Ambien) 5 mg HSPRN PRN ORAL Insomnia 09/08/17 19:00 09/14/17 18:59 Assessment/Plan Status: not improved, unchanged Assessment/Plan cognitive impairment agitation -seroquel 25 mg q 6hr prn Fidelia Medina M.D. Sep 10, 2017 13:46
[2017-09-10] MEDS: cefTRIAXone 1 GM in D5W 55 ML IVPB SCH (14:39)
--- NOTE | 2017-09-10 15:39 | Pulmonology Progress Note ---
Assessment/Plan Assessment/Plan 1. Acute exacerbation of asthma. 2. Diabetes. 3. Hypertension. 4. Hyperlipidemia. 5. Hypothyroidism. 6. UTI ? PLAN: continue breathing treatments, antibiotics steroids 40 mg po daily on RA fu urine culture, no fever, no elevated wbc hold abx hep lock ivf labs stable She will be discharged home when her condition permits. Subjective ROS Limited/Unobtainable: Yes Allergies: Coded Allergies: No Known Allergies (Verified , N/A, 10/16/06) Subjective confused but less agitated at times on RA no distress tolerating some po no fever cough Objective Last 24 Hour Vital Signs Date Time Temp Pulse Resp B/P (MAP) Pulse Ox O2 Delivery O2 Flow Rate FiO2 09/10/17 14:39 169/72 09/10/17 12:00 98.6 60 19 169/72 94 09/10/17 11:32 78 18 99 Room Air 21 09/10/17 11:22 60 18 94 Room Air 21 09/10/17 08:20 157/72 09/10/17 08:05 64 18 98 Room Air 21 09/10/17 08:05 Room Air 21 09/10/17 08:04 95 Room Air 21 09/10/17 08:04 72 18 Room Air 21 09/10/17 08:00 97.2 64 19 157/72 99 09/10/17 07:35 79 18 99 Room Air 21 09/10/17 07:25 78 18 98 Room Air 21 09/10/17 05:15 57 160/71 09/10/17 04:28 192/82 09/10/17 04:00 96.8 56 21 192/82 98 09/10/17 02:15 Room Air 21 09/10/17 02:14 Room Air 21 09/10/17 00:00 98.1 68 19 152/83 95 09/09/17 22:53 Room Air 21 09/09/17 22:52 Room Air 21 09/09/17 20:08 78 18 99 Room Air 21 09/09/17 20:07 Room Air 21 09/09/17 20:07 96 Room Air 21 09/09/17 20:06 75 18 Room Air 21 09/09/17 20:00 98.1 62 20 126/73 96 09/09/17 19:57 82 18 97 Room Air 21 09/09/17 17:31 72 147/76 09/09/17 16:09 175/87 09/09/17 15:57 98.3 77 22 175/87 96 Room Air Intake and Output 09/09/17 09/10/17 19:00 07:00 Intake Total 745 ml 620 ml Output Total 225 ml Balance 745 ml 395 ml Intake Oral 240 ml 620 ml IV Total 505 ml Output Urine Total 225 ml # Voids 4 5 General Appearance: WD/WN HEENT: atraumatic, anicteric Respiratory/Chest: lungs clear Cardiovascular: normal rate, regular rhythm, murmur systolic Abdomen: soft, non tender, no organomegaly Neurologic/Psychiatric: disoriented Laboratory Tests 09/10/17 05:15: White Blood Count 9.7, Red Blood Count 4.13L, Hemoglobin 12.5, Hematocrit 37.9, Mean Corpuscular Volume 92, Mean Corpuscular Hemoglobin 30.2, Mean Corpuscular Hemoglobin Concent 32.9, Red Cell Distribution Width 11.9, Platelet Count 275, Mean Platelet Volume 6.7, Neutrophils (%) (Auto) , Lymphocytes (%) (Auto) , Monocytes (%) (Auto) , Eosinophils (%) (Auto) , Basophils (%) (Auto) , Differential Total Cells Counted 100, Neutrophils % (Manual) 91H, Lymphocytes % (Manual) 8L, Monocytes % (Manual) 1, Eosinophils % (Manual) 0, Basophils % ( Manual) 0, Band Neutrophils 0, Platelet Estimate Adequate, Platelet Morphology Normal, Red Blood Cell Morphology Normal, Sodium Level 136, Potassium Level 4.1 , Chloride Level 101, Carbon Dioxide Level 28, Anion Gap 7, Blood Urea Nitrogen 14, Creatinine 0.6, Estimat Glomerular Filtration Rate , Glucose Level 165H, Calcium Level 7.8L, Magnesium Level 2.1 Current Medications Medications (Trade) Dose Ordered Sig/Cornel Route PRN Reason Start Time Stop Time Status Last Admin Dose Admin Albuterol/ Ipratropium (Albuterol/ Ipratropium) 3 ml Q4HRT HHN 09/08/17 19:00 09/11/17 22:59 09/10/17 11:21 Atorvastatin Calcium (Lipitor) 80 mg BEDTIME ORAL 09/08/17 21:00 10/06/17 20:59 09/09/17 21:14 Azithromycin (Zithromax) 250 mg DAILY ORAL 09/09/17 09:00 09/14/17 08:59 09/10/17 08:26 Ceftriaxone Sodium 1 gm/ Dextrose 55 ml @ 110 mls/hr Q24H IVPB 09/09/17 15:00 09/14/17 14:59 09/10/17 14:39 Dextrose (Dextrose 50%) STAT PRN IV Hypoglycemia 09/08/17 19:00 10/06/17 18:59 EZETIMIBE (Zetia) 10 mg DAILY ORAL 09/09/17 09:00 10/07/17 08:59 09/10/17 08:23 Hydralazine HCl (Apresoline) 25 mg Q6H PRN ORAL For High Blood Pressure 09/09/17 15:45 10/09/17 15:44 09/10/17 14:39 Insulin Aspart (NovoLOG) BEFORE MEALS AND HS SUBQ 09/08/17 21:00 10/07/17 16:29 09/10/17 11:25 Irbesartan (Avapro) 300 mg DAILY ORAL 09/09/17 09:00 10/07/17 08:59 09/10/17 08:20 Levothyroxine Sodium (Synthroid) 50 mcg ACBREAKFAST ORAL 09/09/17 06:30 10/08/17 06:29 09/10/17 05:53 Meloxicam (Mobic) 7.5 mg DAILY ORAL 09/09/17 09:00 10/07/17 08:59 09/10/17 08:23 Methylprednisolone Sodium Succinate (Solu-MEDROL) 40 mg EVERY 12 HOURS IVP 09/08/17 21:00 10/06/17 20:59 09/10/17 08:24 Nebivolol (Bystolic) 20 mg DAILY ORAL 09/09/17 09:00 10/07/17 08:59 09/10/17 08:20 Pantoprazole (Protonix) 40 mg DAILY ORAL 09/09/17 09:00 10/07/17 08:59 09/10/17 08:23 Quetiapine Fumarate (SEROquel) 25 mg Q6H PRN ORAL Agitation 09/09/17 15:45 10/09/17 15:44 09/09/17 16:09 Zolpidem Tartrate (Ambien) 5 mg HSPRN PRN ORAL Insomnia 09/08/17 19:00 09/14/17 18:59 RANJAN KUMARI DO Sep 10, 2017 15:39
[2017-09-10] MEDS ORDERED: Tubing IV Secondary IV ONE (16:53)
[2017-09-10] MEDS: Atorvastatin 80mg tab ORAL SCH (21:36)
[2017-09-11] VITALS: BP 155/78
[2017-09-11] MEDS: Albuterol/Ipratropium 3ml neb HHN SCH ×4 (00:01→11:07)
[2017-09-11 04:00] VITALS: BP 145/74
[2017-09-11] MEDS: NovoLOG Insulin Flexpen SUBQ SCH ×2 (05:52→11:30)
[2017-09-11 08:00] VITALS: BP 142/73
[2017-09-11] MEDS: Azithromycin 250mg tab ORAL SCH (08:08)
[2017-09-11] MEDS: Irbesartan 150mg tablet ORAL SCH (08:09)
--- NOTE | 2017-09-11 09:02 | Pulmonology Progress Note ---
Assessment/Plan Assessment/Plan IMPRESSION: 1. Acute exacerbation of asthma. 2. Diabetes. 3. Hypertension. 4. Hyperlipidemia. 5. Hypothyroidism. PLAN: continue breathing treatments, antibiotics and steroids. DC home Subjective Interval Events: Better Constitutional: Reports: no symptoms HEENT: Repors: no symptoms Respiratory: Reports: shortness of breath Cardiovascular: Reports: no symptoms Gastrointestinal/Abdominal: Reports: no symptoms Allergies: Coded Allergies: No Known Allergies (Verified , N/A, 10/16/06) Objective Last 24 Hour Vital Signs Date Time Temp Pulse Resp B/P (MAP) Pulse Ox O2 Delivery O2 Flow Rate FiO2 09/11/17 08:09 142/73 09/11/17 08:08 67 20 98 Room Air 21 09/11/17 08:00 98.1 18 142/73 09/11/17 07:45 61 18 Room Air 21 09/11/17 07:44 98 Room Air 21 09/11/17 07:43 61 18 98 Room Air 21 09/11/17 04:13 68 18 98 Room Air 21 09/11/17 04:02 21 09/11/17 04:02 56 18 96 Room Air 21 09/11/17 04:00 97.9 65 20 145/74 96 09/11/17 00:11 62 16 99 Room Air 21 09/11/17 00:00 97.7 67 21 155/78 95 09/10/17 23:56 21 09/10/17 23:56 61 16 97 Room Air 21 09/10/17 20:00 97.7 69 22 162/79 95 09/10/17 18:29 72 20 98 Room Air 21 09/10/17 18:25 94 Room Air 21 09/10/17 18:25 Room Air 09/10/17 18:23 78 20 94 Room Air 21 09/10/17 16:00 97.5 62 19 154/87 98 09/10/17 15:47 79 18 97 Room Air 21 09/10/17 15:37 80 18 97 Room Air 21 09/10/17 14:39 169/72 09/10/17 12:00 98.6 60 19 169/72 94 09/10/17 11:32 78 18 99 Room Air 21 09/10/17 11:22 60 18 94 Room Air 21 Intake and Output 09/10/17 09/11/17 19:00 07:00 Intake Total 1700 ml 700 ml Balance 1700 ml 700 ml Intake Oral 1700 ml 700 ml # Voids 5 4 General Appearance: no acute distress HEENT: normocephalic Respiratory/Chest: chest wall non-tender, lungs clear Cardiovascular: normal peripheral pulses Abdomen: normal bowel sounds Current Medications Medications (Trade) Dose Ordered Sig/Cornel Route PRN Reason Start Time Stop Time Status Last Admin Dose Admin Albuterol/ Ipratropium (Albuterol/ Ipratropium) 3 ml Q4HRT HHN 09/08/17 19:00 09/11/17 22:59 09/11/17 07:40 Atorvastatin Calcium (Lipitor) 80 mg BEDTIME ORAL 09/08/17 21:00 10/06/17 20:59 09/10/17 21:36 Azithromycin (Zithromax) 250 mg DAILY ORAL 09/09/17 09:00 09/14/17 08:59 09/11/17 08:08 Ceftriaxone Sodium 1 gm/ Dextrose 55 ml @ 110 mls/hr Q24H IVPB 09/09/17 15:00 09/14/17 14:59 09/10/17 14:39 Dextrose (Dextrose 50%) STAT PRN IV Hypoglycemia 09/08/17 19:00 10/06/17 18:59 EZETIMIBE (Zetia) 10 mg DAILY ORAL 09/09/17 09:00 10/07/17 08:59 09/11/17 08:08 Hydralazine HCl (Apresoline) 25 mg Q6H PRN ORAL For High Blood Pressure 09/09/17 15:45 10/09/17 15:44 09/10/17 14:39 Insulin Aspart (NovoLOG) BEFORE MEALS AND HS SUBQ 09/08/17 21:00 10/07/17 16:29 09/11/17 05:52 Irbesartan (Avapro) 300 mg DAILY ORAL 09/09/17 09:00 10/07/17 08:59 09/11/17 08:09 Levothyroxine Sodium (Synthroid) 50 mcg ACBREAKFAST ORAL 09/09/17 06:30 10/08/17 06:29 09/11/17 05:51 Meloxicam (Mobic) 7.5 mg DAILY ORAL 09/09/17 09:00 10/07/17 08:59 09/11/17 08:08 Nebivolol (Bystolic) 20 mg DAILY ORAL 09/09/17 09:00 10/07/17 08:59 09/11/17 08:08 Pantoprazole (Protonix) 40 mg DAILY ORAL 09/09/17 09:00 10/07/17 08:59 09/11/17 08:08 Prednisone (predniSONE) 40 mg DAILY ORAL 09/10/17 16:00 10/10/17 15:59 09/11/17 08:08 Quetiapine Fumarate (SEROquel) 25 mg Q6H PRN ORAL Agitation 09/09/17 15:45 10/09/17 15:44 09/09/17 16:09 Zolpidem Tartrate (Ambien) 5 mg HSPRN PRN ORAL Insomnia 09/08/17 19:00 09/14/17 18:59 09/11/17 00:55 Mauricio Jerez MD Sep 11, 2017 09:02
[2017-09-11] MEDS ORDERED: MEDROL4 MG ORAL (09:04)
[2017-09-11 12:00] VITALS: BP 149/77
[2017-09-11] MEDS ORDERED: Tubing IV Secondary IV ONE (13:49)
[2017-09-11] MEDS ORDERED: NS 275ml ONE (13:49)
--- NOTE | 2017-09-12 15:56 | Diagnostic Imaging Report ---
Indication: Chest pain Technique: XRAY Chest 1v Comparison: 09/06/2017 Findings: Cardiac silhouette is prominent. Atherosclerotic changes are seen. Bilateral interstitial opacities are again noted. Chronic appearing rib fracture deformities are present. There is suggestion of a retrocardiac density. Impression: Cardiomegaly with grossly stable interstitial prominence of the lungs. Suggestion of retrocardiac density could represent a hernia. Further evaluation recommended.
--- NOTE | 2017-09-12 16:09 | General Progress Note ---
Assessment/Plan Status: stable, progressing Subjective Date patient seen: Sep 11, 2017 Neurologic/Psychiatric: Reports: anxiety, depressed, emotional problems Allergies: Coded Allergies: No Known Allergies (Verified , N/A, 10/16/06) Objective Height (Feet): 5 Height (Inches): 4.00 Weight (Pounds): 119 General Appearance: no apparent distress, alert, confused, agitated Fidelia Medina M.D. Sep 12, 2017 16:09
--- NOTE | 2017-09-12 16:10 | General Progress Note ---
Assessment/Plan Status: stable, progressing Subjective Date patient seen: Sep 10, 2017 Neurologic/Psychiatric: Reports: anxiety, depressed, emotional problems Allergies: Coded Allergies: No Known Allergies (Verified , N/A, 10/16/06) Objective Height (Feet): 5 Height (Inches): 4.00 Weight (Pounds): 119 General Appearance: alert, confused, agitated Fidelia Medina M.D. Sep 12, 2017 16:10
--- NOTE | 2017-09-13 14:28 | Discharge Summary ---
Discharge Summary Hospital Course Date of Admission Sep 06, 2017 at 15:07 Date of Discharge Sep 11, 2017 at 13:50 Admitting Diagnosis asthma exacerbation HPI Renata Danielson is a 87 year old female who was admitted on Sep 06, 2017 at 15:07 for Asthma Exacerbation Hospital Course dc summary #[id number] Discharge Medications New Medications: Methylprednisolone* (Medrol*) 4 Mg Tablet 4 MG ORAL DAILY, #10 TAB 0 Refills Continued Medications: Atorvastatin Calcium* (Atorvastatin Calcium*) 40 Mg Tablet 80 MG ORAL BEDTIME, TAB Ezetimibe (Ezetimibe) 10 Mg Tablet 10 MG PO, TAB Furosemide* (Lasix*) 40 Mg Tablet 40 MG ORAL DAILY, TAB Levothyroxine Sodium* (Levothyroxine Sodium*) 25 Mcg Tablet 25 MCG ORAL DAILY, TAB Take in the morning on an empty stomach, at least 30 minutes before food. Meloxicam* (Meloxicam*) 7.5 Mg Tablet 7.5 MG PO DAILY, TAB Metformin Hcl* (Metformin Hcl*) 500 Mg Tablet 500 MG ORAL TWICE A DAY, TAB Nebivolol Hcl (Bystolic*) 10 Mg Tablet 20 MG ORAL DAILY, TAB Olmesartan Medoxomil (Benicar) 40 Mg Tablet 40 MG ORAL DAILY, TAB Pantoprazole* (Pantoprazole*) 40 Mg Tablet.dr 40 MG ORAL DAILY, TAB Discharge Condition Upon Discharge: stable Discharge Disposition Patient was discharged to Home with Home Health(06) Discharge Diagnoses: Discharge Instructions Discharge Instructions Special Instructions I have been assigned to complete a D/C Summary on this account. I was not involved in the patient management Marva Winn NP ([facility]) Sep 13, 2017 14:28
--- NOTE | 2017-09-14 05:15 | Discharge Summary 2 SIG ---
DATE OF ADMISSION: 09/06/2017 DATE OF DISCHARGE: 09/11/2017 REASON FOR ADMISSION: 87-year-old female with history of asthma, diabetes, hypertension, GERD, presented to emergency department with shortness of breath. The patient reported increasing weakness for the last few days. Overall, her asthma was quite stable on inhaled bronchodilators and the patient did not have any exacerbations recently. She denied fever or chills. No chest pain. No cough. No sputum production. In the emergency department, the patient was afebrile. No leukocytosis. Stable hemoglobin and hematocrit. Chest x-ray negative for acute cardiopulmonary pathology but revealed evidence of cardiomegaly. Laboratory test showed elevated TSH. The patient was admitted with diagnosis of acute exacerbation of asthma, diabetes, hypertension, hyperlipidemia, hypothyroidism. HOSPITAL STAY: The patient was admitted. The patient was started on IV steroids, which were gradually tapered and changed to oral Medrol pack upon discharge. Supplemental oxygen provided as needed to keep saturation above 92%. Pulmonary toilet provided as needed. Antitussive provided on an as needed basis. Blood sugar was managed with sliding scale of insulin. Hemoglobin A1c at goal- 5.7. Statin and Zetia were continued. Dose of thyroid medication was adjusted due to the elevated TSH. Blood pressure was managed with multiple regimen of antihypertensive medications. Blood pressure was controlled. Blood sugar was controlled. Respiratory status was improving. DVT and GI prophylaxis provided. Psychiatric evaluation was requested due to the patient's agitation. Psychiatrist diagnosed the patient with cognitive impairment with agitation and started the patient on Seroquel. The patient was clinically improving and was stable for discharge. FINAL DIAGNOSES: 1. Acute asthma exacerbation. 2. Diabetes mellitus. 3. Hypertension. 4. Hyperlipidemia. 5. Hypothyroidism 6. Cognitive impairment with agitation. DISCHARGE MEDICATIONS: See medication reconciliation list. DISCHARGE INSTRUCTIONS: The patient was discharged home with home health services. Follow up with primary medical doctor next week. Kel Velez M.D. I have been assigned to dictate discharge summary on this account and I was not involved in the patient's management. Marva Winn N.P. ([place]) DR: Boo JOB#: [id number] CC: ASHER
--- NOTE | 2017-09-15 22:11 | Physician Query ---
PLEASE COMPLETE DOCUMENT BEFORE SIGNING Dear Dr. COSME Date: 09/15/17 Park Guard/CDS Name: JOSHUA STODDARD CCS Exercise your independent professional judgment when responding to the query. Questions asked do not imply a particular answer is desired or expected. We greatly appreciate your clarification on this issue. CLINICAL DOCUMENTATION STATES: UTI mentioned in the ER notes on 09/06/17, abx given. Follow up on the floor, it's mentioned in progress note 09/10/17: 6. UTI ? PLAN: continue breathing treatments, antibiotics steroids 40 mg po daily on RA fu urine culture, no fever, no elevated wbc, hold abx DISCHARGE SUMMARY - FINAL DIAGNOSES: 1. Acute asthma exacerbation. 2. Diabetes mellitus. 3. Hypertension. 4. Hyperlipidemia. 5. Hypothyroidism 6. Cognitive impairment with agitation. CLINICAL FINDINGS SHOW: Urine culture on 09/06/17 - negative Please respond to the following question: Please specify if UTI was a confirmed diagnosis? PHYSICIAN RESPONSE: ( ) YES ( x ) NO ( ) Unable to determine Please also document in your Progress Notes and/or Discharge Summary and indicate if the condition was present on admission. GERRI COSME M.D. DATE AND TIME [facility]
--- NOTE | 2017-09-16 16:19 | Cardiology Report ---
APPROVED REPORT EKG Measurement Heart [id number] Sinus rhythm with premature supraventricular complexes Left axis deviation Left bundle branch block Abnormal ECG
== END 2017-09-11 13:50 | disposition home health service (06) | DRG 203 ==
LOC: EMR 15:00 → 2E 15:07 → EDBEDREQ 15:40 → 4E 09-08 18:33
DX: J45.901 Unspecified asthma with (acute) exacerbation (principal); E11.9 Type 2 diabetes mellitus without complications; R41.81 Age-related cognitive decline; I10 Essential (primary) hypertension; E78.5 Hyperlipidemia, unspecified; E03.9 Hypothyroidism, unspecified; K21.9 Gastro-esophageal reflux disease without esophagitis; Z79.84 Long term (current) use of oral hypoglycemic drugs; R45.1 Restlessness and agitation; F41.9 Anxiety disorder, unspecified; F32.89 Other specified depressive episodes
CPT/HCPCS: 36415; 71045; 80048; 80053; 80061; 81003; 82962; 83036; 83605; 83735; 83880; 84443; 84484; 85007; 85025; 86710; 87040; 93005; 94640; 94664; 94760; J1815; J7620